=== PATIENT | male | born 1970 | race Hispanic/Latino ===

== ENCOUNTER 2022-05-15 19:11 | Emergency (ER) | payer BC ==
[2022-05-15] MEDS ORDERED: Bacitracin 1 PK ONE (19:53)
== END 2022-05-15 20:19 | disposition home or self-care (01) ==
LOC: BURERS 19:11
DX: T23.221A Burn of second degree of single right finger (nail) except thumb, initial encounter (principal); X08.8XXA Exposure to other specified smoke, fire and flames, initial encounter
CPT/HCPCS: 99283